=== PATIENT | female | born 1995 | race Two or more races ===

== ENCOUNTER 2017-08-28 19:41 | Emergency (ER) | payer MEDICAID ==
--- NOTE | 2017-08-28 22:34 | EDM.PDOC ---
ED HPI GENERAL MEDICAL PROBLEM - General Chief Complaint: Gastrointestinal Problem Stated Complaint: FLU LIKE SYPTOMS KIDNEYS HURT PREGNET Time Seen by Provider: 08/28/17 20:00 Source of Information: Reports: Patient, RN Notes Reviewed, Significant Other ( Boyfriend) History Limitations: Reports: No Limitations - History of Present Illness INITIAL COMMENTS - FREE TEXT/NARRATIVE: The patient states that she is about 20 weeks 5 days gestation. She presents with a sore throat, rhinorrhea, a dry cough, and right flank pain that began last night, along with nausea, vomiting, and diarrhea that began this morning. She denies having any urinary symptoms. No recent fever. No recent chest pain, shortness breath, or palpitations. She has not taken any [id number] medicines. She came to the ED because she is worried about her . The patient did not receive an influenza vaccine this season. The patient's Line Pilot is Dr. Rdz. - Related Data Allergies Allergy/AdvReac Type Severity Reaction Status Date / Time strawberry Allergy Airway Verified 08/28/17 19:52 Tightness Home Meds: Home Meds Vitamins. 1 tab PO DAILY 08/28/17 [History] Past Medical History - Past Surgical History HEENT Surgical History: Reports: Oral Surgery ([place] teeth extraction) Social & Family History - Tobacco Use Smoking Status *Q: Never Smoker - Alcohol Use Alcohol Use History: Yes Alcohol Use Frequency: Socially - Recreational Drug Use Recreational Drug Use: No - Living Situation & Occupation Living situation: Reports: Single, with Significant Other (Boyfriend) Occupation: Employed ([employer]) ED ROS GENERAL - Review of Systems Review Of Systems: See Below Constitutional: Reports: No Symptoms HEENT: Reports: No Symptoms Respiratory: Reports: No Symptoms Cardiovascular: Reports: No Symptoms Endocrine: Reports: No Symptoms GI/Abdominal: Reports: No Symptoms : Reports: No Symptoms Musculoskeletal: Reports: No Symptoms Skin: Reports: No Symptoms Neurological: Reports: No Symptoms Psychiatric: Reports: No Symptoms Hematologic/Lymphatic: Reports: No Symptoms Immunologic: Reports: No Symptoms ED EXAM, GENERAL - Physical Exam Exam: See Below Exam Limited By: No Limitations General Appearance: Alert, WD/WN, No Apparent Distress Eye Exam: Bilateral Eye: Normal Inspection Ears: Normal External Exam, Normal Canal, Hearing Grossly Normal, Normal TMs Nose: Normal Inspection, Normal Mucosa, No Blood Throat/Mouth: Normal Inspection, Normal Lips, Normal Teeth, Normal Gums, Normal Oropharynx, Normal Voice, No Airway Compromise Head: Atraumatic, Normocephalic Neck: Normal Inspection, Supple, Non-Tender, Full Range of Motion. No: Lymphadenopathy (L), Lymphadenopathy (R) Respiratory/Chest: No Respiratory Distress, Lungs Clear, Normal Breath Sounds, No Accessory Muscle Use Cardiovascular: Normal Peripheral Pulses, Regular Rate, Rhythm, No Gallop, No JVD, No Murmur, No Rub Peripheral Pulses: 4+: Radial (L), Radial (R) GI/Abdominal: Normal Bowel Sounds, Soft, Non-Tender, No Organomegaly, No Distention, No Abnormal Bruit, No Mass, Mass (Gravid uterus, consistent with dates) (Female) Exam: Deferred Rectal (Female) Exam: Deferred Back Exam: Normal Inspection, Full Range of Motion. No: CVA Tenderness (L), CVA Tenderness (R) Extremities: Normal Inspection, Normal Range of Motion, No Pedal Edema, Normal Capillary Refill Neurological: Alert, Oriented, Normal Cognition, No Motor/Sensory Deficits Psychiatric: Normal Affect Skin Exam: Warm, Dry, Intact, Normal Color, No Rash Course - Vital Signs Last Recorded V/S: Last Vital Signs Temp 36.7 C 08/28/17 19:52 Pulse 113 H 08/28/17 19:52 Resp BP 124/73 08/28/17 19:52 Pulse Ox 96 08/28/17 19:52 - Orders/Labs/Meds Orders: Active Orders 24 hr Category Date Time Status Heart Rate [RC] Click to Edit Care 08/28/17 20:13 Active CULTURE STREP A CONFIRMATION [RM] Stat Lab 08/28/17 20:09 Results STREP SCRN A RAPID W CULT CONF [RM] Stat Lab 08/28/17 20:09 Results Labs: Laboratory Tests 08/28/17 08/28/17 08/28/17 Range/Units 20:12 20:12 20:56 WBC 8.76 (3.98-10.04) K/mm3 RBC 4.38 (3.98-5.22) M/mm3 Hgb 13.7 (11.2-15.7) gm/L Hct 38.5 (34.1-44.9) % MCV 87.9 (79.4-94.8) fl MCH 31.3 (25.6-32.2) pg MCHC 35.6 H (32.2-35.5) g/dl RDW Std Deviation 40.7 (36.4-46.3) fL Plt Count 192 (182-369) K/mm3 MPV 10.0 (9.4-12.3) fl Neutrophils % (Manual) 81 H (40-60) % Band Neutrophils % 0 (0-10) % Lymphocytes % (Manual) 12 L (20-40) % Atypical Lymphs % 0 % Monocytes % (Manual) 7 (2-10) % Eosinophils % (Manual) 0 L (0.7-5.8) % Basophils % (Manual) 0 L (0.1-1.2) Platelet Estimate Adequate Plt Morphology Comment Normal RBC Morph Comment Normal Sodium 140 (136-145) mEq/L Potassium 3.8 (3.5-5.1) mEq/L Chloride 105 (98-107) mEq/L Carbon Dioxide 21 (21-32) mEq/L Anion Gap 17.8 H (5-15) BUN 7 (7-18) mg/dL Creatinine 0.6 (0.55-1.02) mg/dL Est Cr Clr Drug Dosing 122.69 mL/min Estimated GFR (MDRD) > 60 (>60) mL/min BUN/Creatinine Ratio 11.7 L (14-18) Glucose 79 (74-106) mg/dL Calcium 9.1 (8.5-10.1) mg/dL Total Bilirubin 0.3 (0.2-1.0) mg/dL AST 43 H (15-37) U/L ALT 53 (14-59) U/L Alkaline Phosphatase 66 (46-116) U/L Total Protein 7.2 (6.4-8.2) g/dl Albumin 3.3 L (3.4-5.0) g/dl Globulin 3.9 gm/dL Albumin/Globulin Ratio 0.9 L (1-2) Urine Color Light yellow (Yellow) Urine Appearance Clear (Clear) Urine pH 6.5 (5.0-8.0) Ur Specific [place] 1.010 (1.005-1.030) Urine Protein Negative (Negative) Urine Glucose (UA) Negative (Negative) Urine Ketones 1+ H (Negative) Urine Occult Blood Negative (Negative) Urine Nitrite Negative (Negative) Urine Bilirubin Negative (Negative) Urine Urobilinogen 0.2 (0.2-1.0) Ur Leukocyte Esterase Negative (Negative) Urine RBC 0-5 (0-5) /hpf Urine WBC 0-5 (0-5) /hpf Ur Epithelial Cells 0-5 (0-5) /hpf Urine Bacteria Occasional (FEW) /hpf Urine Mucus Not seen (FEW) /hpf - Re-Assessments/Exams Free Text/Narrative Re-Assessment/Exam: 08/28/17 22:28 Test results discussed with the patient and her boyfriend. Today's workup is entirely normal. The patient appears to have a viral URI with cough. Since she is and does not have a fever, I am recommending no treatment whatsoever. Departure - Departure Time of Disposition: 22:29 Disposition: Home, Self-Care 01 Condition: Good Clinical Impression: Viral URI with cough, - Discharge Information Instructions: Upper Respiratory Infection, Adult, [id number] Referrals: Natalie Rdz MD [Primary Care Provider] - Forms: ED Department Discharge Additional Instructions: You were seen in the emergency room for a sore throat, runny nose, dry cough, nausea, vomiting, and diarrhea, and right flank pain. Your entire workup was unremarkable. You do not have influenza or a strep throat. There is no sign of an infection. You do not have a urinary tract infection. Your electrolytes are normal, and you are not dehydrated. heart tones were 158, which are normal. Your symptoms are MOST LIKELY due to a viral URI with cough. Since you are , and do not have a fever, we do not recommend that you take any medications to try to treat these symptoms. They will have to run their course. Just make sure that he stay well hydrated. Follow-up with Dr. Rdz as needed. If any other problems, please do not hesitate to return to the ER. - My Orders Last 24 Hours: My Active Orders 08/28/17 20:09 CULTURE STREP A CONFIRMATION [RM] Stat STREP SCRN A RAPID W CULT CONF [RM] Stat 08/28/17 20:13 Heart Rate [RC] Click to Edit - Assessment/Plan Last 24 Hours: My Active Orders 08/28/17 20:09 CULTURE STREP A CONFIRMATION [RM] Stat STREP SCRN A RAPID W CULT CONF [RM] Stat 08/28/17 20:13 Heart Rate [RC] Click to Edit
== END 2017-08-28 22:53 | disposition home or self-care (01) ==
LOC: JD.ED 19:41
DX: O99.512 Diseases of the respiratory system complicating pregnancy, second trimester (principal); J06.9 Acute upper respiratory infection, unspecified; Z91.018 Allergy to other foods; Z3A.20 20 weeks gestation of pregnancy
CPT/HCPCS: 36415; 80053; 81001; 85025; 87081; 87430; 87804; 99283

== ENCOUNTER 2017-12-26 01:21 | Inpatient (IN) | payer MEDICAID ==
[2017-12-26] MEDS ORDERED: Sodium Chloride 0.9% 10 ML Syringe FLUSH PRN (08:05)
[2017-12-26] MEDS ORDERED: Misoprostol 25 MCG (1/4 of 100 MCG) Tab VAG ONE (08:09)
[2017-12-26] MEDS ORDERED: Oxytocin/Lactated Ringers 10 UNIT/1,000 ML BAG IV SCH ×2 (08:15)
--- NOTE | 2017-12-26 09:01 | PCM.LDHP ---
L&D History of Present Illness - General Date of Service: 12/26/17 Admit Problem/Dx: Patient Status Order with Admit Dx/Problem 12/26/17 08:06 Patient Status [ADT] Routine Admission Diagnosis/Problem Admission Diagnosis/Problem Source of Information: Patient History Limitations: Reports: No Limitations - History of Present Illness Introduction:: Patient is a 22 y/o at 37 6/7 wks presents for IOL for preeclampsia. Doing well. No issues with headaches, vision changes, RUQ pain. Getting good FM. Thinks she may be having some contractions. - Related Data Allergies/Adverse Reactions: Allergies Allergy/AdvReac Type Severity Reaction Status Date / Time strawberry Allergy Airway Verified 08/28/17 19:52 Tightness Home Medications: Home Meds Vitamins. 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 hypertension mother and father Respiratory: Reports: Asthma Other Respiratory Family Hisory: father Oncologic: Reports: Renal Other Oncologic Family History: mother - Tobacco Use Smoking Status *Q: Never Smoker - Alcohol Use Alcohol Use History: No - Recreational Drug Use Recreational Drug Use: No - Living Situation & Occupation Living situation: Reports: Single, with Significant Other (Boyfriend) Occupation: Employed ([employer]) H&P Review of Systems - Review of Systems: Review Of Systems: See Below General: Reports: No Symptoms Pulmonary: Reports: No Symptoms Cardiovascular: Reports: No Symptoms Gastrointestinal: Reports: No Symptoms Genitourinary: Reports: No Symptoms Musculoskeletal: Reports: No Symptoms Psychiatric: Reports: No Symptoms L&D Exam - Exam Exam: See Below - Vital Signs Vital Signs: Last Vital Signs Temp 36.4 C 12/26/17 08:05 Pulse 104 H 12/26/17 08:05 Resp 16 12/26/17 08:05 BP 127/87 12/26/17 08:05 Pulse Ox 100 12/26/17 08:05 Weight: 102.058 kg - OB Specific Contraction Intensity: Irritability Movement: Active Heart Tones: Present Heart Tones per Min: 135 Heart Rate (FHR) Variability: Moderate (6-25 bmp) Presentation: Vertex - Ramirez Score Ramirez Score Cervix Position: Posterior Ramirez Score Consistency: Soft Ramirez Score Effacement: 31-50% Ramirez Score Dilation: 1-2 cm Ramirez Score Infant's Station: -2 Ramirez Score Total: 5 - Exam General: Alert, Oriented, Cooperative Lungs: Clear to Auscultation, Normal Respiratory Effort Cardiovascular: Regular Rate, Regular Rhythm GI/Abdominal Exam: Soft, Non-Tender Genitourinary: Normal external exam Extremities: Normal Inspection Skin: Warm, Dry, Intact - Patient Data Lab Results Last 24 hrs: Laboratory Results - last 24 hr 12/26/17 Range/Units 08:30 WBC 10.38 H (3.98-10.04) K/mm3 RBC 4.37 (3.98-5.22) M/mm3 Hgb 12.1 (11.2-15.7) gm/L Hct 35.7 (34.1-44.9) % MCV 81.7 (79.4-94.8) fl MCH 27.7 (25.6-32.2) pg MCHC 33.9 (32.2-35.5) g/dl RDW Std Deviation 38.4 (36.4-46.3) fL Plt Count 295 (182-369) K/mm3 MPV 9.1 L (9.4-12.3) fl Neut % (Auto) 75.2 H (34.0-71.1) % Lymph % (Auto) 17.3 L (19.3-51.7) % [place] % (Auto) 6.1 (4.7-12.5) % Eos % (Auto) 0.9 (0.7-5.8) Baso % (Auto) 0.1 (0.1-1.2) % Neut # (Auto) 7.81 H (1.56-6.13) K/mm3 Lymph # (Auto) 1.80 (1.18-3.74) K/mm3 [place] # (Auto) 0.63 H (0.24-0.36) K/mm3 Eos # (Auto) 0.09 (0.04-0.36) K/mm3 Baso # (Auto) 0.01 (0.01-0.08) K/mm3 Result Diagrams: 12/26/17 08:30 - Problem List (1) 37 weeks gestation of SNOMED Code(s): 44532995 ICD Code: Z3A.37 - 37 WEEKS GESTATION OF Status: Acute Current Visit: Yes (2) Preeclampsia SNOMED Code(s): 650079782 ICD Code: O14.90 - UNSPECIFIED PRE-ECLAMPSIA, UNSPECIFIED TRIMESTER Status : Acute Current Visit: Yes Qualifiers: Trimester: third trimester Qualified Code(s): O14.93 - Unspecified pre- eclampsia, third trimester Problem List Initiated/Reviewed/Updated: Yes Orders Last 24hrs: Active Orders 24 hr Category Date Time Status Patient Status [ADT] Routine ADT 12/26/17 08:06 Active Activity as Tolerated [RC] PFP Care 12/26/17 08:05 Active Communication Order [RC] ASDIRECTED Care 12/26/17 08:05 Active Heart Tones [RC] ASDIRECTED Care 12/26/17 08:05 Active Notify Provider [RC] PFP Care 12/26/17 08:05 Active Notify Provider [RC] PRN Care 12/26/17 08:05 Active Peripheral IV Care [RC] . DIRECTED Care 12/26/17 08:05 Active Vital Signs [RC] PER UNIT ROUTINE Care 12/26/17 08:05 Active Regular Diet [DIET] Diet 12/26/17 Breakfast Active ALANINE AMINOTRANSFERASE,ALT [CHEM] Routine Lab 12/26/17 08:51 Ordered ASPARTATE AMNIOTRANSFERASE,AST [CHEM] Routine Lab 12/26/17 08:51 Ordered CREATININE W/GFR [CHEM] Routine Lab 12/26/17 08:51 Ordered TYPE AND SCREEN [BBK] Routine Lab 12/26/17 08:30 Ordered Lactated Ringers [Ringers, Lactated] 1,000 ml Med 12/26/17 08:15 Active IV ASDIRECTED Oxytocin/Lactated Ringers [Pitocin in LR 10 Units/1,000 Med 12/26/17 08:15 Active ML] 10 unit in 1,000 ml IV .CONTINUOUS Oxytocin/Lactated Ringers [Pitocin in LR 10 Units/1,000 Med 12/26/17 08:15 Active ML] 10 unit in 1,000 ml IV TITRATE Sodium Chloride 0.9% [Saline Flush] Med 12/26/17 08:05 Active 10 ml FLUSH ASDIRECTED PRN Electronic Heart Tones Ext w TOCO [WOMSER] Oth 12/26/17 08:05 Ordered Routine Electronic Heart Tones Internal [WOMSER] Per Unit Oth 12/26/17 08:05 Ordered Routine Peripheral IV Insertion Adult [OM.PC] Routine Oth 12/26/17 08:05 Ordered Saline Lock Insert [OM.PC] Routine Oth 12/26/17 08:07 Ordered Resuscitation Status Routine Resus Stat 12/26/17 08:05 Ordered Medication Orders Lactated Ringer's (Ringers, Lactated) 1,000 mls @ 100 mls/hr IV ASDIRECTED BRYAN Oxytocin/Lactated Ringer's (Pitocin In Lr 10 Units/1,000 Ml) 10 unit in 1,000 mls @ 12 mls/hr IV TITRATE BRYAN; 2 MUNITS/MIN PRN Reason: Protocol Oxytocin/Lactated Ringer's (Pitocin In Lr 10 Units/1,000 Ml) 10 unit in 1,000 mls @ 500 mls/hr IV .CONTINUOUS BRYAN Sodium Chloride (Saline Flush) 10 ml FLUSH ASDIRECTED PRN PRN Reason: Keep Vein Open Assessment/Plan Comment:: 22 y/o at 37 6/7 wks presents for IOL for preeclampsia * CBC, AST, ALT, Creatinine, T&S * Cytotec for IOL, pitocin/AROM when able * GBS negative, no need for antibiotics * Monitor BP's closely. As long as mild elevation and normal labs will defer magnesium * Pain management per patient preference * Anticipate
[2017-12-26] MEDS ORDERED: Ondansetron 4 MG/2 ML SDV IVPUSH PRN (10:50)
[2017-12-26] MEDS ORDERED: fentaNYL 100 MCG/2 ML SDV EPIDUR PRN (10:50)
[2017-12-26] MEDS ORDERED: ePHEDrine 50 MG/ML SDV IVPUSH PRN (10:50)
--- NOTE | 2017-12-26 10:52 | PCM.PREANE ---
Preanesthetic Assessment - Anesthesia/Transfusion/Family Hx Anesthesia History: Prior Anesthesia Without Reaction Family History of Anesthesia Reaction: No Transfusion History: No Prior Transfusion(s) Intubation History: Unknown - Review of Systems General: No Symptoms Pulmonary: No Symptoms Cardiovascular: No Symptoms (pre-eclampsia) Gastrointestinal: No Symptoms (GERD), Constipation, Diarrhea, Nausea Neurological: No Symptoms Other: Reports: None - Physical Assessment NPO Status Date: 12/26/17 NPO Status Time: 09:00 Pulse: 104 O2 Sat by Pulse Oximetry: 100 Respiratory Rate: 16 Blood Pressure: 127/87 Temperature: 36.4 C Vital Signs: Last Vital Signs Temp 36.4 C 12/26/17 08:05 Pulse 104 H 12/26/17 08:05 Resp 16 12/26/17 08:05 BP 127/87 12/26/17 08:05 Pulse Ox 100 12/26/17 08:05 Height: 1.63 m Weight: 102.058 kg ASA Class: 2 Mental Status: Alert & Oriented x3 Airway Class: Mallampati = 2 Dentition: Reports: Normal Dentition, Caries Thyro-Mental Finger Breadths: 3 Mouth Opening Finger Breadths: 3 ROM/Head Extension: Full Lungs: Clear to Auscultation, Normal Respiratory Effort Cardiovascular: Regular Rate, Regular Rhythm, No Murmurs - Lab Values: Laboratory Last Values WBC 10.38 K/mm3 (3.98-10.04) H 12/26/17 08:30 RBC 4.37 M/mm3 (3.98-5.22) 12/26/17 08:30 Hgb 12.1 gm/L (11.2-15.7) 12/26/17 08:30 Hct 35.7 % (34.1-44.9) 12/26/17 08:30 MCV 81.7 fl (79.4-94.8) 12/26/17 08:30 MCH 27.7 pg (25.6-32.2) 12/26/17 08:30 MCHC 33.9 g/dl (32.2-35.5) 12/26/17 08:30 RDW Std Deviation 38.4 fL (36.4-46.3) 12/26/17 08:30 Plt Count 295 K/mm3 (182-369) 12/26/17 08:30 MPV 9.1 fl (9.4-12.3) L 12/26/17 08:30 Neut % (Auto) 75.2 % (34.0-71.1) H 12/26/17 08:30 Lymph % (Auto) 17.3 % (19.3-51.7) L 12/26/17 08:30 [place] % (Auto) 6.1 % (4.7-12.5) 12/26/17 08:30 Eos % (Auto) 0.9 (0.7-5.8) 12/26/17 08:30 Baso % (Auto) 0.1 % (0.1-1.2) 12/26/17 08:30 Neut # (Auto) 7.81 K/mm3 (1.56-6.13) H 12/26/17 08:30 Lymph # (Auto) 1.80 K/mm3 (1.18-3.74) 12/26/17 08:30 [place] # (Auto) 0.63 K/mm3 (0.24-0.36) H 12/26/17 08:30 Eos # (Auto) 0.09 K/mm3 (0.04-0.36) 12/26/17 08:30 Baso # (Auto) 0.01 K/mm3 (0.01-0.08) 12/26/17 08:30 Creatinine 0.7 mg/dL (0.55-1.02) 12/26/17 09:40 Est Cr Clr Drug Dosing 108.86 mL/min 12/26/17 09:40 Estimated GFR (MDRD) > 60 mL/min (>60) 12/26/17 09:40 AST 32 U/L (15-37) 12/26/17 09:40 ALT 52 U/L (14-59) 12/26/17 09:40 Blood Type AB POSITIVE 12/26/17 08:30 Gel Antibody Screen Negative 12/26/17 08:30 Above labs reviewed and noted and within acceptable ranges to proceed with epidural. 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 1 tab PO DAILY 08/28/17 [History] - CURRENT (IN HOUSE) MEDS Current Meds: Current Medications Lactated Ringer's (Ringers, Lactated) 1,000 mls @ 100 mls/hr IV ASDIRECTED BRYAN Oxytocin/Lactated Ringer's (Pitocin In Lr 10 Units/1,000 Ml) 10 unit in 1,000 mls @ 12 mls/hr IV TITRATE BRYAN; 2 MUNITS/MIN PRN Reason: Protocol Oxytocin/Lactated Ringer's (Pitocin In Lr 10 Units/1,000 Ml) 10 unit in 1,000 mls @ 500 mls/hr IV .CONTINUOUS BRYAN Sodium Chloride (Saline Flush) 10 ml FLUSH ASDIRECTED PRN PRN Reason: Keep Vein Open Discontinued Medications Misoprostol (Cytotec) 25 mcg VAG ONETIME ONE Stop: 12/26/17 08:10 Last Admin: 12/26/17 08:33 Dose: 25 mcg
[2017-12-26] MEDS ORDERED: Bupivacaine/fentaNYL/NS 100 ML Bag EPIDUR SCH (11:00)
[2017-12-26] MEDS: Lactated Ringers 1,000 ML IV SCH ×4 (12:00→23:55)
--- NOTE | 2017-12-26 20:11 | PCM.PNLD ---
Labor Progress Note - VS & Meds Vital Signs: Last Vital Signs Temp 36.4 C 12/26/17 13:47 Pulse 104 H 12/26/17 13:47 Resp 16 12/26/17 13:47 BP 127/87 12/26/17 13:47 Pulse Ox 100 12/26/17 13:47 Active Medications: Current Medications Ephedrine Sulfate (Ephedrine Sulfate) 5 mg IVPUSH ASDIRECTED PRN PRN Reason: Hypotension Fentanyl (Sublimaze) 100 mcg EPIDUR Q3H PRN PRN Reason: Pain Last Admin: 12/26/17 19:00 Dose: 100 mcg Fentanyl/Bupivacaine HCl (Fentanyl/Bupivacaine/Ns 2 Mcg-0.125% 100 Ml) 100 ml EPIDUR ASDIRECTED BRYAN Last Admin: 12/26/17 19:00 Dose: 100 ml Lactated Ringer's (Ringers, Lactated) 1,000 mls @ 100 mls/hr IV ASDIRECTED BRYAN Last Admin: 12/26/17 18:38 Dose: 100 mls/hr Oxytocin/Lactated Ringer's (Pitocin In Lr 10 Units/1,000 Ml) 10 unit in 1,000 mls @ 12 mls/hr IV TITRATE BRYAN; 2 MUNITS/MIN PRN Reason: Protocol Oxytocin/Lactated Ringer's (Pitocin In Lr 10 Units/1,000 Ml) 10 unit in 1,000 mls @ 500 mls/hr IV .CONTINUOUS BRYAN Ondansetron HCl (Zofran) 4 mg IVPUSH ONETIME PRN PRN Reason: Nausea/Vomiting Sodium Chloride (Saline Flush) 10 ml FLUSH ASDIRECTED PRN PRN Reason: Keep Vein Open Discontinued Medications Misoprostol (Cytotec) 25 mcg VAG ONETIME ONE Stop: 12/26/17 08:10 Last Admin: 12/26/17 08:33 Dose: 25 mcg - Uterine Contractions Uterine Monitoring Mode: External [place] Contraction Intensity: Moderate - Monitoring Monitor Mode: External Ultrasound Heart Rate (FHR) Baseline: 135 Heart Rate (FHR) Variability: Moderate (6-25 bmp) Accelerations: Present, 15x15 Decelerations: None Strip Review: Category I - Vaginal Exam Dilation (cm): 1 Effacement (Percent): 40 Station: -2 Cervical Position: Posterior - Labor Progress (Free Text) Labor Progress: Patient doing well with first dose of cytotec. Merlin frequently. Will not place another. Garcia bulb placed with aid of speculum and ring forceps. Received call about 30 minutes after placement. Garcia bulb did break and removed by nursing/intact. Defer further placement currently. Will reassess this PM
--- NOTE | 2017-12-26 20:13 | PCM.PNLD ---
Labor Progress Note - VS & Meds Vital Signs: Last Vital Signs Temp 36.4 C 12/26/17 13:47 Pulse 104 H 12/26/17 13:47 Resp 16 12/26/17 13:47 BP 127/87 12/26/17 13:47 Pulse Ox 100 12/26/17 13:47 Active Medications: Current Medications Ephedrine Sulfate (Ephedrine Sulfate) 5 mg IVPUSH ASDIRECTED PRN PRN Reason: Hypotension Fentanyl (Sublimaze) 100 mcg EPIDUR Q3H PRN PRN Reason: Pain Last Admin: 12/26/17 19:00 Dose: 100 mcg Fentanyl/Bupivacaine HCl (Fentanyl/Bupivacaine/Ns 2 Mcg-0.125% 100 Ml) 100 ml EPIDUR ASDIRECTED BRYAN Last Admin: 12/26/17 19:00 Dose: 100 ml Lactated Ringer's (Ringers, Lactated) 1,000 mls @ 100 mls/hr IV ASDIRECTED BRYAN Last Admin: 12/26/17 18:38 Dose: 100 mls/hr Oxytocin/Lactated Ringer's (Pitocin In Lr 10 Units/1,000 Ml) 10 unit in 1,000 mls @ 12 mls/hr IV TITRATE BRYAN; 2 MUNITS/MIN PRN Reason: Protocol Oxytocin/Lactated Ringer's (Pitocin In Lr 10 Units/1,000 Ml) 10 unit in 1,000 mls @ 500 mls/hr IV .CONTINUOUS BRYAN Ondansetron HCl (Zofran) 4 mg IVPUSH ONETIME PRN PRN Reason: Nausea/Vomiting Sodium Chloride (Saline Flush) 10 ml FLUSH ASDIRECTED PRN PRN Reason: Keep Vein Open Discontinued Medications Misoprostol (Cytotec) 25 mcg VAG ONETIME ONE Stop: 12/26/17 08:10 Last Admin: 12/26/17 08:33 Dose: 25 mcg - Uterine Contractions Uterine Monitoring Mode: External [place] Contraction Intensity: Strong - Monitoring Monitor Mode: External Ultrasound Heart Rate (FHR) Baseline: 135 Heart Rate (FHR) Variability: Moderate (6-25 bmp) Accelerations: Present, 15x15 Decelerations: None Strip Review: Category I - Vaginal Exam Dilation (cm): 1 Effacement (Percent): 70 Station: -1 Cervical Position: Midposition - Labor Progress (Free Text) Labor Progress: Patient very uncomfortable. Merlin on own without need for further augmentation. BP's remain mild range. Continue present management. Epidural per patient request
--- NOTE | 2017-12-26 20:14 | PCM.PNLD ---
Labor Progress Note - VS & Meds Vital Signs: Last Vital Signs Temp 36.4 C 12/26/17 13:47 Pulse 104 H 12/26/17 13:47 Resp 16 12/26/17 13:47 BP 127/87 12/26/17 13:47 Pulse Ox 100 12/26/17 13:47 Active Medications: Current Medications Ephedrine Sulfate (Ephedrine Sulfate) 5 mg IVPUSH ASDIRECTED PRN PRN Reason: Hypotension Fentanyl (Sublimaze) 100 mcg EPIDUR Q3H PRN PRN Reason: Pain Last Admin: 12/26/17 19:00 Dose: 100 mcg Fentanyl/Bupivacaine HCl (Fentanyl/Bupivacaine/Ns 2 Mcg-0.125% 100 Ml) 100 ml EPIDUR ASDIRECTED BRYAN Last Admin: 12/26/17 19:00 Dose: 100 ml Lactated Ringer's (Ringers, Lactated) 1,000 mls @ 100 mls/hr IV ASDIRECTED BRYAN Last Admin: 12/26/17 18:38 Dose: 100 mls/hr Oxytocin/Lactated Ringer's (Pitocin In Lr 10 Units/1,000 Ml) 10 unit in 1,000 mls @ 12 mls/hr IV TITRATE BRYAN; 2 MUNITS/MIN PRN Reason: Protocol Oxytocin/Lactated Ringer's (Pitocin In Lr 10 Units/1,000 Ml) 10 unit in 1,000 mls @ 500 mls/hr IV .CONTINUOUS BRYAN Ondansetron HCl (Zofran) 4 mg IVPUSH ONETIME PRN PRN Reason: Nausea/Vomiting Sodium Chloride (Saline Flush) 10 ml FLUSH ASDIRECTED PRN PRN Reason: Keep Vein Open Discontinued Medications Misoprostol (Cytotec) 25 mcg VAG ONETIME ONE Stop: 12/26/17 08:10 Last Admin: 12/26/17 08:33 Dose: 25 mcg - Uterine Contractions Uterine Monitoring Mode: External [place] Contraction Intensity: Strong - Monitoring Monitor Mode: External Ultrasound Heart Rate (FHR) Baseline: 135 Heart Rate (FHR) Variability: Moderate (6-25 bmp) Accelerations: Present, 15x15 Decelerations: Late (rare, after epidural) Strip Review: Category II - Vaginal Exam Dilation (cm): 2 Effacement (Percent): 80 Station: -1 Cervical Position: Midposition - Labor Progress (Free Text) Labor Progress: Patient comfortable with epidural. With SVE there is SROM of scant amount of clear fluid. Continue present management
[2017-12-26] MEDS ORDERED: Bupivacaine 0.25% 10 ML SDV ONE (22:22)
--- NOTE | 2017-12-26 23:48 | PCM.PNLD ---
Labor Progress Note - VS & Meds Vital Signs: Last Vital Signs Temp 36.4 C 12/26/17 13:47 Pulse 104 H 12/26/17 13:47 Resp 16 12/26/17 13:47 BP 127/87 12/26/17 13:47 Pulse Ox 100 12/26/17 13:47 Active Medications: Current Medications Ephedrine Sulfate (Ephedrine Sulfate) 5 mg IVPUSH ASDIRECTED PRN PRN Reason: Hypotension Fentanyl (Sublimaze) 100 mcg EPIDUR Q3H PRN PRN Reason: Pain Last Admin: 12/26/17 19:00 Dose: 100 mcg Fentanyl/Bupivacaine HCl (Fentanyl/Bupivacaine/Ns 2 Mcg-0.125% 100 Ml) 100 ml EPIDUR ASDIRECTED BRYAN Last Admin: 12/26/17 19:00 Dose: 100 ml Lactated Ringer's (Ringers, Lactated) 1,000 mls @ 100 mls/hr IV ASDIRECTED BRYAN Last Admin: 12/26/17 20:15 Dose: 100 mls/hr Oxytocin/Lactated Ringer's (Pitocin In Lr 10 Units/1,000 Ml) 10 unit in 1,000 mls @ 12 mls/hr IV TITRATE BRYAN; 2 MUNITS/MIN PRN Reason: Protocol Oxytocin/Lactated Ringer's (Pitocin In Lr 10 Units/1,000 Ml) 10 unit in 1,000 mls @ 500 mls/hr IV .CONTINUOUS BRYAN Ondansetron HCl (Zofran) 4 mg IVPUSH ONETIME PRN PRN Reason: Nausea/Vomiting Sodium Chloride (Saline Flush) 10 ml FLUSH ASDIRECTED PRN PRN Reason: Keep Vein Open Discontinued Medications Misoprostol (Cytotec) 25 mcg VAG ONETIME ONE Stop: 12/26/17 08:10 Last Admin: 12/26/17 08:33 Dose: 25 mcg - Uterine Contractions Uterine Monitoring Mode: External [place] Contraction Intensity: Strong - Monitoring Monitor Mode: External Ultrasound Heart Rate (FHR) Baseline: 140 Heart Rate (FHR) Variability: Moderate (6-25 bmp) (Some periods of minimal ) Accelerations: Present, 15x15 Decelerations: Early, Late, Intermittent (<50% x 20 min) Strip Review: Category II - Vaginal Exam Dilation (cm): 5 Effacement (Percent): 100 Station: 1 Cervical Position: Midposition - Labor Progress (Free Text) Labor Progress: Called by nursing at 2315 due to concerns with difficulty reading tracing. Questions of lates vs early. Patient does have few isolated late decelerations , but then what are these large/flat bottom decelerations that time with contractions. Timing is of early decelerations, but appearance not classic. IUPC placed. Patient has made great cervical change. Will continue to monitor closely. No medications required. Has only needed one dose of cytotec at the start of induction.
--- NOTE | 2017-12-27 02:43 | PCM.DEL ---
L & D Note - General Info Date of Service: 12/27/17 - Delivery Note Cervical Ripening Method: Misoprostil Delivery Outcome: Livebirth Delivery Method: Spontaneous Vaginal Delivery-Single Delivery Mode: Spontaneous Presentation: Right Occiput Anterior (PARESH) Nuchal Cord: None Anesthesia Type: Epidural Amniotic Fluid Description: Clear Episiotomy Type: None Laceration: 1st Degree, Labial (right sided ) Suture type: Vicryl Suture size: 3-0 Placenta: Intact, Spontaneous Cord: 3 Vessels Estimated Blood Loss: 250 [place]: Bulb Syringe, Stimulated, Warmed, [place] Used Delivery Comments (Free Text/Narrative):: Patient found to be complete and began pushing. With maternal pushing effort head delivered from an PARESH presentation. No nuchal cord present. With gentle downward traction the shoulders and body delivered. Infant placed on maternal abdomen. Cord clamped and cut. Cord blood obtained. Placenta allowed time to separate and expelled intact. Inspection of the perineum showed a right labia tear superiorly which was repaired with several interrupted sutures of 3-0 vicryl. There was also a 1st degree perineal laceration which was repaired with a running 3-0 vicryl in the typical fashion - Patient Data Vitals - Most Recent: Last Vital Signs Temp 36.4 C 12/26/17 13:47 Pulse 104 H 12/26/17 13:47 Resp 16 12/26/17 13:47 BP 127/87 12/26/17 13:47 Pulse Ox 100 12/26/17 13:47 Weight - Most Recent: 102.058 kg I&O - Last 24 Hours: Intake & Output 12/26/17 12/26/17 12/27/17 14:59 22:59 06:59 Intake Total 0 Balance 0 Lab Results Last 24 Hours: Laboratory Results - last 24 hr 12/26/17 12/26/17 12/26/17 Range/Units 08:30 08:30 09:40 WBC 10.38 H (3.98-10.04) K/mm3 RBC 4.37 (3.98-5.22) M/mm3 Hgb 12.1 (11.2-15.7) gm/L Hct 35.7 (34.1-44.9) % MCV 81.7 (79.4-94.8) fl MCH 27.7 (25.6-32.2) pg MCHC 33.9 (32.2-35.5) g/dl RDW Std Deviation 38.4 (36.4-46.3) fL Plt Count 295 (182-369) K/mm3 MPV 9.1 L (9.4-12.3) fl Neut % (Auto) 75.2 H (34.0-71.1) % Lymph % (Auto) 17.3 L (19.3-51.7) % [place] % (Auto) 6.1 (4.7-12.5) % Eos % (Auto) 0.9 (0.7-5.8) Baso % (Auto) 0.1 (0.1-1.2) % Neut # (Auto) 7.81 H (1.56-6.13) K/mm3 Lymph # (Auto) 1.80 (1.18-3.74) K/mm3 [place] # (Auto) 0.63 H (0.24-0.36) K/mm3 Eos # (Auto) 0.09 (0.04-0.36) K/mm3 Baso # (Auto) 0.01 (0.01-0.08) K/mm3 Creatinine 0.7 (0.55-1.02) mg/dL Est Cr Clr Drug Dosing 108.86 mL/min Estimated GFR (MDRD) > 60 (>60) mL/min AST 32 (15-37) U/L ALT 52 (14-59) U/L Blood Type AB POSITIVE Gel Antibody Screen Negative Med Orders - Current: Current Medications Ephedrine Sulfate (Ephedrine Sulfate) 5 mg IVPUSH ASDIRECTED PRN PRN Reason: Hypotension Fentanyl (Sublimaze) 100 mcg EPIDUR Q3H PRN PRN Reason: Pain Last Admin: 12/26/17 19:00 Dose: 100 mcg Fentanyl/Bupivacaine HCl (Fentanyl/Bupivacaine/Ns 2 Mcg-0.125% 100 Ml) 100 ml EPIDUR ASDIRECTED BRYAN Last Admin: 12/26/17 19:00 Dose: 100 ml Lactated Ringer's (Ringers, Lactated) 1,000 mls @ 100 mls/hr IV ASDIRECTED BRYAN Last Admin: 12/26/17 23:55 Dose: 100 mls/hr Oxytocin/Lactated Ringer's (Pitocin In Lr 10 Units/1,000 Ml) 10 unit in 1,000 mls @ 12 mls/hr IV TITRATE BRYAN; 2 MUNITS/MIN PRN Reason: Protocol Oxytocin/Lactated Ringer's (Pitocin In Lr 10 Units/1,000 Ml) 10 unit in 1,000 mls @ 500 mls/hr IV .CONTINUOUS BRYAN Ondansetron HCl (Zofran) 4 mg IVPUSH ONETIME PRN PRN Reason: Nausea/Vomiting Sodium Chloride (Saline Flush) 10 ml FLUSH ASDIRECTED PRN PRN Reason: Keep Vein Open Discontinued Medications Misoprostol (Cytotec) 25 mcg VAG ONETIME ONE Stop: 12/26/17 08:10 Last Admin: 12/26/17 08:33 Dose: 25 mcg - Problem List & Annotations (1) 37 weeks gestation of SNOMED Code(s): 02256782 Code(s): Z3A.37 - 37 WEEKS GESTATION OF Status: Acute Current Visit: Yes (2) Preeclampsia SNOMED Code(s): 441898846 Code(s): O14.90 - UNSPECIFIED PRE-ECLAMPSIA, UNSPECIFIED TRIMESTER Status: Acute Current Visit: Yes Qualifiers: Trimester: third trimester Qualified Code(s): O14.93 - Unspecified pre- eclampsia, third trimester (3) Vaginal delivery SNOMED Code(s): 626813359 Code(s): O80 - ENCOUNTER FOR FULL-TERM UNCOMPLICATED DELIVERY Status: Acute Current Visit: Yes - Problem List Review Problem List Initiated/Reviewed/Updated: Yes - My Orders Last 24 Hours: My Active Orders 12/26/17 08:05 Activity as Tolerated [RC] PFP Communication Order [RC] ASDIRECTED Heart Tones [RC] ASDIRECTED Notify Provider [RC] PFP Notify Provider [RC] PRN Peripheral IV Care [RC] . DIRECTED Vital Signs [RC] PER UNIT ROUTINE Sodium Chloride 0.9% [Saline Flush] 10 ml FLUSH ASDIRECTED PRN Electronic Heart Tones Ext w TOCO [WOMSER] Routine Electronic Heart Tones Internal [WOMSER] Per Unit Routine Peripheral IV Insertion Adult [OM.PC] Routine Resuscitation Status Routine 12/26/17 08:06 Patient Status [ADT] Routine 12/26/17 08:07 Saline Lock Insert [OM.PC] Routine 12/26/17 08:15 Lactated Ringers [Ringers, Lactated] 1,000 ml IV ASDIRECTED Oxytocin/Lactated Ringers [Pitocin in LR 10 Units/1,000 ML] 10 unit in 1,000 ml IV .CONTINUOUS Oxytocin/Lactated Ringers [Pitocin in LR 10 Units/1,000 ML] 10 unit in 1,000 ml IV TITRATE 12/26/17 08:30 PATIENT RETYPE [BBK] Routine TYPE AND SCREEN [BBK] Routine 12/26/17 Breakfast Regular Diet [DIET] - Assessment Assessment:: 22 y/o G2 now P1011 PPD#0 from at 38 0/7 wks after IOL for preeclampsia - Plan Plan:: * Routine cares * Encourage breast feeding * Monitor BP's closely. * Discharge home in 1-2 days
[2017-12-27] MEDS ORDERED: Acetaminophen 325 MG Tab PO PRN (02:53)
[2017-12-27] MEDS ORDERED: Docusate Sodium 100 MG Cap PO PRN (02:53)
[2017-12-27] MEDS ORDERED: Benzocaine/Menthol 20%-0.5% Spray 56 GM Canister TOP PRN (02:53)
[2017-12-27] MEDS ORDERED: Witch Hazel Medicated Pads 100/Jar TOP PRN (02:53)
[2017-12-27] MEDS ORDERED: Lanolin 100% Cream 7 GM Tube TOP PRN (02:53)
[2017-12-27] MEDS: Ibuprofen 600 MG Tab PO PRN ×3 (03:52→18:30)
--- NOTE | 2017-12-27 07:53 | PCM48HPAN ---
Post Anesthesia Note - EVALUATION WITHIN 48HRS OF ANESTHETIC Vital Signs in Normal Range: Yes Patient Participated in Evaluation: Yes Respiratory Function Stable: Yes Airway Patent: Yes Cardiovascular Function Stable: Yes Hydration Status Stable: Yes Pain Control Satisfactory: Yes Nausea and Vomiting Control Satisfactory: Yes Mental Status Recovered: Yes Pulse Rate: 104 Resp Rate: 16 Temperature: 36.4 C Blood Pressure: 127/87 - COMMENTS/OBSERVATIONS Free Text/Narrative:: When asked patient if she had any concerns she responded,"No everything is fine. Oh ya I did have a headache." At the present time she says she has no headache "I just feel hungover." Encouraged to drink lots of fluids.
--- NOTE | 2017-12-28 06:57 | PCM.DCSUM1 ---
Discharge Summary - Discharge Data Discharge Date: 12/29/17 Discharge Disposition: Home, Self-Care 01 Condition: Good - Discharge Diagnosis/Problem(s) (1) 37 weeks gestation of SNOMED Code(s): 26615551 ICD Code: Z3A.37 - 37 WEEKS GESTATION OF Status: Acute (2) Preeclampsia SNOMED Code(s): 196773363 ICD Code: O14.90 - UNSPECIFIED PRE-ECLAMPSIA, UNSPECIFIED TRIMESTER Status : Acute Qualifiers: Trimester: third trimester Qualified Code(s): O14.93 - Unspecified pre- eclampsia, third trimester (3) Vaginal delivery SNOMED Code(s): 082364148 ICD Code: O80 - ENCOUNTER FOR FULL-TERM UNCOMPLICATED DELIVERY Status: Acute - Patient Summary/Data Complications: None Consults: None Recommended Follow-up Testing/Procedures: Follow up in 1-2 weeks for BP check and in 5-6 weeks for check Hospital Course: Patient is a 22 y/o at 37 6/7 wks who presented for IOL for preeclampsia. This was done with cytote. She progressed well to complete dilation and underwent an uncomplicated . See delivery note. she did well and was discharged home on PPD2 - Patient Instructions Diet: Regular Diet as Tolerated Activity: As Tolerated Activity, Other: Pelvic Rest for 6 weeks Driving: May Drive Today Showering/Bathing: May Shower Showering/Bathing, Other: May Bathe Notify Provider of: Fever, Increased Pain, Swelling and Redness, Drainage, Nausea and/or Vomiting - Discharge Plan Home Medications: Home Meds Vitamins. 1 tab PO DAILY 08/28/17 [History] Docusate Sodium [Colace] 100 mg PO BID PRN cap 12/28/17 [Rx] Ibuprofen [IJD: Ibuprofen] 600 mg PO Q6H PRN tablet 12/28/17 [Rx] Patient Handouts: Home Care Instructions for Mom Referrals: Natalie Rdz MD [Primary Care Provider] - (1-2 weeks from delivery for BP check 6 weeks from delivery for check ) - Discharge Summary/Plan Comment DC Time >30 min.: No - Patient Data Vitals - Most Recent: Last Vital Signs Temp 36.8 C 12/27/17 19:46 Pulse 104 H 12/27/17 19:46 Resp 18 12/27/17 19:46 BP 131/83 12/27/17 19:46 Pulse Ox 94 L 12/27/17 19:46 Weight - Most Recent: 102.058 kg I&O - Last 24 hours: Intake & Output 12/27/17 12/27/1718 14:59 22:59 06:59 Intake Total 0 0 Balance 0 0 Med Orders - Current: Current Medications Acetaminophen (Tylenol) 650 mg PO Q4H PRN PRN Reason: mild pain or fever Benzocaine/Menthol (Dermoplast Pain Relief [place]) 0 gm TOP ASDIRECTED PRN PRN Reason: Perineal Comfort Measure Last Admin: 12/27/17 03:51 Dose: 1 applic Docusate Sodium (Colace) 100 mg PO BID PRN PRN Reason: Constipation Emollient Ointment (Lansinoh Hpa) 0 gm TOP ASDIRECTED PRN PRN Reason: Sore Nipples Ibuprofen (Motrin) 600 mg PO Q6H PRN PRN Reason: Mild pain or fever Last Admin: 12/27/17 18:30 Dose: 600 mg Witch [place]iana (Tucks) 1 pad TOP ASDIRECTED PRN PRN Reason: Hemorrhoid pain Last Admin: 12/27/17 03:52 Dose: 1 tub Discontinued Medications Ephedrine Sulfate (Ephedrine Sulfate) 5 mg IVPUSH ASDIRECTED PRN PRN Reason: Hypotension Fentanyl (Sublimaze) 100 mcg EPIDUR Q3H PRN PRN Reason: Pain Last Admin: 12/26/17 19:00 Dose: 100 mcg Fentanyl/Bupivacaine HCl (Fentanyl/Bupivacaine/Ns 2 Mcg-0.125% 100 Ml) 100 ml EPIDUR ASDIRECTED BRYAN Last Admin: 12/26/17 19:00 Dose: 100 ml Lactated Ringer's (Ringers, Lactated) 1,000 mls @ 100 mls/hr IV ASDIRECTED BRYAN Last Admin: 12/26/17 23:55 Dose: 100 mls/hr Oxytocin/Lactated Ringer's (Pitocin In Lr 10 Units/1,000 Ml) 10 unit in 1,000 mls @ 12 mls/hr IV TITRATE BRYAN; 2 MUNITS/MIN PRN Reason: Protocol Oxytocin/Lactated Ringer's (Pitocin In Lr 10 Units/1,000 Ml) 10 unit in 1,000 mls @ 500 mls/hr IV .CONTINUOUS BRYAN Last Admin: 12/27/17 03:50 Dose: 500 mls/hr Misoprostol (Cytotec) 25 mcg VAG ONETIME ONE Stop: 12/26/17 08:10 Last Admin: 12/26/17 08:33 Dose: 25 mcg Ondansetron HCl (Zofran) 4 mg IVPUSH ONETIME PRN PRN Reason: Nausea/Vomiting Sodium Chloride (Saline Flush) 10 ml FLUSH ASDIRECTED PRN PRN Reason: Keep Vein Open *Q Meaningful Use (DIS) - VTE *Q VTE Criteria *Q: - Stroke *Q Stroke Criteria *Q: - AMI *Q AMI Criteria *Q:
--- NOTE | 2017-12-28 06:57 | PCM.PNPP ---
- General Info Date of Service: 12/28/17 Functional Status: Reports: Pain Controlled, Tolerating Diet, Ambulating, Urinating - Review of Systems General: Reports: No Symptoms Pulmonary: Reports: No Symptoms Cardiovascular: Reports: No Symptoms Gastrointestinal: Reports: No Symptoms Genitourinary: Reports: No Symptoms Musculoskeletal: Reports: No Symptoms - Patient Data Vital Signs - Most Recent: Last Vital Signs Temp 36.8 C 12/27/17 19:46 Pulse 104 H 12/27/17 19:46 Resp 18 12/27/17 19:46 BP 131/83 12/27/17 19:46 Pulse Ox 94 L 12/27/17 19:46 Weight - Most Recent: 102.058 kg I&O - Last 24 Hours: Intake & Output 12/27/17 12/27/17 12/28/17 14:59 22:59 06:59 Intake Total 0 0 Balance 0 0 Med Orders - Current: Current Medications Acetaminophen (Tylenol) 650 mg PO Q4H PRN PRN Reason: mild pain or fever Benzocaine/Menthol (Dermoplast Pain Relief [place]) 0 gm TOP ASDIRECTED PRN PRN Reason: Perineal Comfort Measure Last Admin: 12/27/17 03:51 Dose: 1 applic Docusate Sodium (Colace) 100 mg PO BID PRN PRN Reason: Constipation Emollient Ointment (Lansinoh Hpa) 0 gm TOP ASDIRECTED PRN PRN Reason: Sore Nipples Ibuprofen (Motrin) 600 mg PO Q6H PRN PRN Reason: Mild pain or fever Last Admin: 12/27/17 18:30 Dose: 600 mg Witch [place] (Tucks) 1 pad TOP ASDIRECTED PRN PRN Reason: Hemorrhoid pain Last Admin: 12/27/17 03:52 Dose: 1 tub Discontinued Medications Ephedrine Sulfate (Ephedrine Sulfate) 5 mg IVPUSH ASDIRECTED PRN PRN Reason: Hypotension Fentanyl (Sublimaze) 100 mcg EPIDUR Q3H PRN PRN Reason: Pain Last Admin: 12/26/17 19:00 Dose: 100 mcg Fentanyl/Bupivacaine HCl (Fentanyl/Bupivacaine/Ns 2 Mcg-0.125% 100 Ml) 100 ml EPIDUR ASDIRECTED BRYAN Last Admin: 12/26/17 19:00 Dose: 100 ml Lactated Ringer's (Ringers, Lactated) 1,000 mls @ 100 mls/hr IV ASDIRECTED BRYAN Last Admin: 12/26/17 23:55 Dose: 100 mls/hr Oxytocin/Lactated Ringer's (Pitocin In Lr 10 Units/1,000 Ml) 10 unit in 1,000 mls @ 12 mls/hr IV TITRATE BRYAN; 2 MUNITS/MIN PRN Reason: Protocol Oxytocin/Lactated Ringer's (Pitocin In Lr 10 Units/1,000 Ml) 10 unit in 1,000 mls @ 500 mls/hr IV .CONTINUOUS BRYAN Last Admin: 12/27/17 03:50 Dose: 500 mls/hr Misoprostol (Cytotec) 25 mcg VAG ONETIME ONE Stop: 12/26/17 08:10 Last Admin: 12/26/17 08:33 Dose: 25 mcg Ondansetron HCl (Zofran) 4 mg IVPUSH ONETIME PRN PRN Reason: Nausea/Vomiting Sodium Chloride (Saline Flush) 10 ml FLUSH ASDIRECTED PRN PRN Reason: Keep Vein Open - Interaction Infant Disposition, : [place] in Room with Family Infant Interaction: Holding Infant Infant Feeding: Attempted ; Nursed Fair/Poor - Recovery Exam Fundal Tone: Firm Fundal Level: At Umbilicus Fundal Placement: Midline Lochia Amount: Moderate Lochia Color: Rubra/Red Perineum Description: Intact, Minimal Bruising/Swelling Bladder Status: Voiding Urinary Elimination: Voided - Exam General: Alert, Oriented, Cooperative GI/Abdominal Exam: Soft, Non-Tender Extremities: Normal Inspection Skin: Warm, Dry, Intact - Problem List & Annotations (1) 37 weeks gestation of SNOMED Code(s): 65647142 Code(s): Z3A.37 - 37 WEEKS GESTATION OF Status: Acute Current Visit: Yes (2) Preeclampsia SNOMED Code(s): 816642727 Code(s): O14.90 - UNSPECIFIED PRE-ECLAMPSIA, UNSPECIFIED TRIMESTER Status: Acute Current Visit: Yes Qualifiers: Trimester: third trimester Qualified Code(s): O14.93 - Unspecified pre- eclampsia, third trimester (3) Vaginal delivery SNOMED Code(s): 245513994 Code(s): O80 - ENCOUNTER FOR FULL-TERM UNCOMPLICATED DELIVERY Status: Acute Current Visit: Yes - Problem List Review Problem List Initiated/Reviewed/Updated: Yes - My Orders Last 24 Hours: My Active Orders 12/27/17 Breakfast Regular Diet [DIET] 12/28/17 02:53 Heat Therapy [OM.PC] PRN 12/28/17 06:56 Ready for Discharge [RC] PER UNIT ROUTINE - Assessment Assessment:: 22 y/o G2 now P1011 PPD#1 from at 38 0/7 wks after IOL for preeclampsia - Plan Plan:: * Routine cares * Encourage breast feeding * BP's normal, continue to monitor * Discharge home tomorrow
[2017-12-28] MEDS: Ibuprofen 600 MG Tab PO PRN ×2 (10:21→20:14)
[2017-12-29] MEDS: Ibuprofen 600 MG Tab PO PRN (04:07)
--- NOTE | 2017-12-29 07:11 | PCM.PNPP ---
- General Info Date of Service: 12/29/17 Functional Status: Reports: Pain Controlled, Tolerating Diet, Ambulating, Urinating - Review of Systems General: Reports: No Symptoms Pulmonary: Reports: No Symptoms Cardiovascular: Reports: No Symptoms Gastrointestinal: Reports: No Symptoms Genitourinary: Reports: Other (Some discomfort around suture site ) Musculoskeletal: Reports: No Symptoms - Patient Data Vital Signs - Most Recent: Last Vital Signs Temp 36.8 C 12/29/17 04:02 Pulse 93 12/29/17 04:02 Resp 18 12/29/17 04:02 BP 128/72 12/29/17 04:02 Pulse Ox 95 12/29/17 04:02 Weight - Most Recent: 102.058 kg Med Orders - Current: Current Medications Acetaminophen (Tylenol) 650 mg PO Q4H PRN PRN Reason: mild pain or fever Benzocaine/Menthol (Dermoplast Pain Relief [place]) 0 gm TOP ASDIRECTED PRN PRN Reason: Perineal Comfort Measure Last Admin: 12/27/17 03:51 Dose: 1 applic Docusate Sodium (Colace) 100 mg PO BID PRN PRN Reason: Constipation Emollient Ointment (Lansinoh Hpa) 0 gm TOP ASDIRECTED PRN PRN Reason: Sore Nipples Ibuprofen (Motrin) 600 mg PO Q6H PRN PRN Reason: Mild pain or fever Last Admin: 12/29/17 04:07 Dose: 600 mg Witch Riana (Tucks) 1 pad TOP ASDIRECTED PRN PRN Reason: Hemorrhoid pain Last Admin: 12/27/17 03:52 Dose: 1 tub Discontinued Medications Bupivacaine HCl (Sensorcaine-Mpf 0.25%) 10 ml .ROUTE .STK-MED ONE Stop: 12/26/17 22:23 Ephedrine Sulfate (Ephedrine Sulfate) 5 mg IVPUSH ASDIRECTED PRN PRN Reason: Hypotension Fentanyl (Sublimaze) 100 mcg EPIDUR Q3H PRN PRN Reason: Pain Last Admin: 12/26/17 19:00 Dose: 100 mcg Fentanyl/Bupivacaine HCl (Fentanyl/Bupivacaine/Ns 2 Mcg-0.125% 100 Ml) 100 ml EPIDUR ASDIRECTED BRYAN Last Admin: 12/26/17 19:00 Dose: 100 ml Lactated Ringer's (Ringers, Lactated) 1,000 mls @ 100 mls/hr IV ASDIRECTED BRYAN Last Admin: 12/26/17 23:55 Dose: 100 mls/hr Oxytocin/Lactated Ringer's (Pitocin In Lr 10 Units/1,000 Ml) 10 unit in 1,000 mls @ 12 mls/hr IV TITRATE BRYAN; 2 MUNITS/MIN PRN Reason: Protocol Oxytocin/Lactated Ringer's (Pitocin In Lr 10 Units/1,000 Ml) 10 unit in 1,000 mls @ 500 mls/hr IV .CONTINUOUS BRYAN Last Admin: 12/27/17 03:50 Dose: 500 mls/hr Misoprostol (Cytotec) 25 mcg VAG ONETIME ONE Stop: 12/26/17 08:10 Last Admin: 12/26/17 08:33 Dose: 25 mcg Ondansetron HCl (Zofran) 4 mg IVPUSH ONETIME PRN PRN Reason: Nausea/Vomiting Sodium Chloride (Saline Flush) 10 ml FLUSH ASDIRECTED PRN PRN Reason: Keep Vein Open - Interaction Infant Disposition, : in Room with Family Interaction: Holding Infant Feeding: Attempted ; Nursed Fair/Poor - Recovery Exam Fundal Tone: Firm Fundal Level: 1 Fingerbreadths Below Umbilicus Fundal Placement: Midline Lochia Amount: Scant Lochia Color: Rubra/Red Perineum Description: Other (see below) Other Perinuem Description: 1st degree laceration with repair. Episiotomy/Laceration: Approximated Bladder Status: Voiding Urinary Elimination: Voided - Exam General: Alert, Oriented, Cooperative GI/Abdominal Exam: Soft, Non-Tender Extremities: Normal Inspection Skin: Warm, Dry, Intact - Problem List & Annotations (1) 37 weeks gestation of SNOMED Code(s): 23434442 Code(s): Z3A.37 - 37 WEEKS GESTATION OF Status: Acute (2) Preeclampsia SNOMED Code(s): 643157592 Code(s): O14.90 - UNSPECIFIED PRE-ECLAMPSIA, UNSPECIFIED TRIMESTER Status: Acute Qualifiers: Trimester: third trimester Qualified Code(s): O14.93 - Unspecified pre- eclampsia, third trimester (3) Vaginal delivery SNOMED Code(s): 534432740 Code(s): O80 - ENCOUNTER FOR FULL-TERM UNCOMPLICATED DELIVERY Status: Acute - Problem List Review Problem List Initiated/Reviewed/Updated: Yes - My Orders Last 24 Hours: My Active Orders 12/28/17 06:56 Ready for Discharge [RC] PER UNIT ROUTINE - Assessment Assessment:: 22 y/o G2 now P1011 PPD#2 from at 38 0/7 wks after IOL for preeclampsia - Plan Plan:: * Routine cares * Encourage breast feeding * BP's normal. Will follow up in clinic for BP check in 1-2 weeks * Discharge home today
== END 2017-12-29 10:45 | disposition home or self-care (01) | DRG 775 ==
LOC: JD.OB 01:21 → OBSVTOIN 12-27 01:21
PROVIDERS: ADMIT Obstetrics & Gynecology; ATTEND Obstetrics & Gynecology
PROC: 10E0XZZ Delivery of Products of Conception, External Approach (ICD-10-PCS; principal; 2017-12-27)
PROC: 3E0P7VZ Introduction of Hormone into Female Reproductive, Via Natural or Artificial Opening (ICD-10-PCS; 2017-12-27)
PROC: 0HQ9XZZ Repair Perineum Skin, External Approach (ICD-10-PCS; 2017-12-27)
PROC: 00HU33Z Insertion of Infusion Device into Spinal Canal, Percutaneous Approach (ICD-10-PCS; 2017-12-27)
PROC: 3E0R3BZ Introduction of Anesthetic Agent into Spinal Canal, Percutaneous Approach (ICD-10-PCS; 2017-12-27)
DX: O14.94 Unspecified pre-eclampsia, complicating childbirth (principal); O42.02 Full-term premature rupture of membranes, onset of labor within 24 hours of rupture; O70.0 First degree perineal laceration during delivery; Z3A.37 37 weeks gestation of pregnancy; Z37.0 Single live birth; Z91.018 Allergy to other foods
CPT/HCPCS: 01967; 36415; 51702; 59300; 59409; 82565; 84450; 84460; 85025; 86850; 86900; 86901; A9270-GY; J2590; J3010; J7120

== ENCOUNTER 2019-07-22 12:56 | Emergency (ER) | payer SELFPAY ==
--- NOTE | 2019-07-22 13:15 | EDM.PDOC ---
ED HPI GENERAL MEDICAL PROBLEM - General Chief Complaint: Headache Stated Complaint: HEADACHE Time Seen by Provider: 07/22/19 13:07 Source of Information: Reports: Patient, RN Notes Reviewed History Limitations: Reports: No Limitations - History of Present Illness INITIAL COMMENTS - FREE TEXT/NARRATIVE: Patient is a 23-year-old female who presents to the ED for the evaluation of a headache. The patient attempted to go to the walk-in clinic but was referred here for management. Patient states that she has had an on-and-off headache behind her eyes that shoots through the back of her head for about 2 and half to 3 weeks now. She states she's been taking 600 mg ibuprofen 2 times daily for her headache and it hasn't really made the headache go away at all. The patient states that that the headache is always kind of a throbbing headache in nature, but sometimes increases to a stabbing pain. She notes her pain is a 6 out of 10. She denies any history of migraines. She states on the headache is at its worst, she does see some spots, and is light sensitive. She notes that she got a new pair of glasses a few weeks before this headache started. She denies any past medical history other than having a child, does not take any regular medications. She denies any fevers or chills, nausea/vomiting/ diarrhea. She has no primary care physician. Forehead Pain Score (Numeric/FACES): 6 - Related Data Allergies Allergy/AdvReac Type Severity Reaction Status Date / Time strawberry Allergy Airway Verified 07/22/19 13:11 Tightness Home Meds: Home Meds . [No Known Home Meds] 07/22/19 [History] Past Medical History - Past Health History Medical/Surgical History: Denies Medical/Surgical History [employer] History: Reports: , Spontaneous Endocrine/Metabolic History: Reports: Obesity/BMI 30+ - Past Surgical History HEENT Surgical History: Reports: Oral Surgery Social & Family History - Family History Cardiac: Reports: Hypertension, OR Other Cardiac Family History: mat grandfather OR. hypertension mother and father Respiratory: Reports: Asthma Other Respiratory Family Hisory: father Oncologic: Reports: Renal Other Oncologic Family History: mother - Tobacco Use Smoking Status *Q: Never Smoker - Caffeine Use Caffeine Use: Reports: None - Living Situation & Occupation Living situation: Reports: Single, with Significant Other (Boyfriend) Occupation: Employed ([employer]) ED ROS GENERAL - Review of Systems Review Of Systems: See Below Constitutional: Denies: Fever, Chills HEENT: Reports: No Symptoms Respiratory: Denies: Shortness of Breath Cardiovascular: Denies: Chest Pain Endocrine: Reports: No Symptoms GI/Abdominal: Denies: Abdominal Pain, Constipation, Diarrhea, Nausea, Vomiting : Reports: No Symptoms Musculoskeletal: Reports: No Symptoms Skin: Reports: No Symptoms Neurological: Reports: Headache Psychiatric: Reports: No Symptoms Hematologic/Lymphatic: Reports: No Symptoms Immunologic: Reports: No Symptoms - Physical Exam Exam: See Below Exam Limited By: No Limitations General Appearance: Alert, WD/WN, No Apparent Distress Eye Exam: Bilateral Eye: EOMI, Normal Inspection, PERRL Ears: Normal External Exam Nose: Normal Inspection Throat/Mouth: Normal Inspection, Normal Lips, Normal Teeth, Normal Gums, Normal Oropharynx, Normal Voice, No Airway Compromise Head Exam: Atraumatic, Normocephalic Neck: Normal Inspection, Supple, Non-Tender, Full Range of Motion Respiratory/Chest: No Respiratory Distress, Lungs Clear, Normal Breath Sounds, No Accessory Muscle Use, Chest Non-Tender Cardiovascular: Normal Peripheral Pulses, Regular Rate, Rhythm, No Murmur GI/Abdominal: Normal Bowel Sounds, Soft, Non-Tender, No Distention, No Mass Neuro Exam (Abbreviated): Alert, Oriented, Normal Cognition, No Motor/Sensory Deficits Extremities: Normal Inspection, Normal Capillary Refill Psychiatric: Normal Affect, Normal Mood Skin Exam: Warm, Dry, Intact, Normal Color, No Rash Course - Vital Signs Last Recorded V/S: Last Vital Signs Temp 97.9 F 07/22/19 13:06 Pulse 99 07/22/19 13:06 Resp 20 07/22/19 13:06 BP 136/94 H 07/22/19 13:06 Pulse Ox 100 07/22/19 13:06 - Orders/Labs/Meds Orders: Active Orders 24 hr Category Date Time Status Peripheral IV Care [RC] . DIRECTED Care 07/22/19 13:24 Active Peripheral IV Insertion Adult [OM.PC] Routine Oth 07/22/19 13:24 Ordered Labs: Laboratory Tests 07/22/19 07/22/19 Range/Units 13:48 13:48 WBC 7.80 (3.98-10.04) K/mm3 RBC 4.95 (3.98-5.22) M/mm3 Hgb 14.2 D (11.2-15.7) gm/dl Hct 41.1 (34.1-44.9) % MCV 83.0 (79.4-94.8) fl MCH 28.7 (25.6-32.2) pg MCHC 34.5 (32.2-35.5) g/dl RDW Std Deviation 38.1 (36.4-46.3) fL Plt Count 345 (182-369) K/mm3 MPV 9.3 L (9.4-12.3) fl Neut % (Auto) 56.5 (34.0-71.1) % Lymph % (Auto) 33.6 (19.3-51.7) % [place] % (Auto) 5.9 (4.7-12.5) % Eos % (Auto) 3.6 (0.7-5.8) Baso % (Auto) 0.3 (0.1-1.2) % Neut # (Auto) 4.41 (1.56-6.13) K/mm3 Lymph # (Auto) 2.62 (1.18-3.74) K/mm3 [place] # (Auto) 0.46 H (0.24-0.36) K/mm3 Eos # (Auto) 0.28 (0.04-0.36) K/mm3 Baso # (Auto) 0.02 (0.01-0.08) K/mm3 Sodium 139 (136-145) mEq/L Potassium 4.0 (3.5-5.1) mEq/L Chloride 104 (98-107) mEq/L Carbon Dioxide 26 (21-32) mEq/L Anion Gap 13.0 (5-15) BUN 14 (7-18) mg/dL Creatinine 0.7 (0.55-1.02) mg/dL Est Cr Clr Drug Dosing 103.40 mL/min Estimated GFR (MDRD) > 60 (>60) mL/min BUN/Creatinine Ratio 20.0 H (14-18) Glucose 90 (74-106) mg/dL Calcium 9.2 (8.5-10.1) mg/dL Total Bilirubin 0.3 (0.2-1.0) mg/dL AST 21 (15-37) U/L ALT 34 (14-59) U/L Alkaline Phosphatase 74 (46-116) U/L Total Protein 7.4 (6.4-8.2) g/dl Albumin 3.7 (3.4-5.0) g/dl Globulin 3.7 gm/dL Albumin/Globulin Ratio 1.0 (1-2) Meds: Medications Discontinued Medications Generic Name Dose Route Start Last Admin Trade Name Freq PRN Reason Stop Dose Admin Diphenhydramine HCl 25 mg 07/22/19 13:24 07/22/19 14:12 Benadryl IVPUSH 07/22/19 13:25 25 mg ONETIME ONE Administration Sodium Chloride 1,000 mls @ 125 mls/hr 07/22/19 13:30 07/22/19 13:30 Normal Saline IV 125 mls/hr ASDIRECTED BRYAN Administration Ketorolac Tromethamine 30 mg 07/22/19 13:24 07/22/19 14:10 Toradol IVPUSH 07/22/19 13:25 30 mg ONETIME ONE Administration Metoclopramide HCl 10 mg 07/22/19 13:24 07/22/19 14:09 Reglan IVPUSH 07/22/19 13:25 10 mg ONETIME ONE Administration Sodium Chloride 10 ml 07/22/19 13:24 07/22/19 21:03 Saline Flush FLUSH 10 ml ASDIRECTED PRN Administration Keep Vein Open - Re-Assessments/Exams Free Text/Narrative Re-Assessment/Exam: 07/22/19 13:35 Patient presents to the ED for evaluation of a headache. I'm unsure to the etiology with splint causing his for the past few weeks, however she did get a new glasses prescription shortly before the headache started. I did order CBC, CMP for lab evaluation, IV be placed with IV fluids, 10 mg Reglan, 25 mg Benadryl, 30 mg Toradol for initial management. 07/22/19 14:35 Patient's laboratory evaluation is back,no acute abnormalities. Patient was requesting to go home after demented been given, she did not receive the IV fluids. This is fine with me, I did direct her to follow up with primary care physician for further management of this headache. She understands. Departure - Departure Time of Disposition: 14:22 Disposition: Home, Self-Care 01 Condition: Fair Clinical Impression: Headache Qualifiers: Headache type: tension-type Headache chronicity pattern: acute headache Intractability: not intractable Qualified Code(s): G44.209 - Tension-type headache, unspecified, not intractable - Discharge Information *PRESCRIPTION DRUG MONITORING PROGRAM REVIEWED*: No *COPY OF PRESCRIPTION DRUG MONITORING REPORT IN PATIENT BELINDA: No Instructions: General Headache Without Cause, [id number] Referrals: PCP,None [Primary Care Provider] - Forms: ED Department Discharge Additional Instructions: You were evaluated in the ED for your headache. Your laboratory evaluation demonstrated no acute abnormalities at today's visit. You were given a combination of IV medications for management. This did seem to provide you pretty good relief of your symptoms. Recommend that you go home and rest in a quiet darkened room. Try also to keep well hydrated. You should try to establish care with a primary care physician, any family practice provider would be able to provide you with the services. Our [facility] telephone number is [phone], the [facility]'s number is . Please return to the ED if your symptoms should change or worsen. - My Orders Last 24 Hours: My Active Orders 07/22/19 13:24 Peripheral IV Care [RC] . DIRECTED Peripheral IV Insertion Adult [OM.PC] Routine - Assessment/Plan Last 24 Hours: My Active Orders 07/22/19 13:24 Peripheral IV Care [RC] . DIRECTED Peripheral IV Insertion Adult [OM.PC] Routine
[2019-07-22] MEDS ORDERED: Metoclopramide 10 MG/2 ML SDV IVPUSH ONE (13:24)
[2019-07-22] MEDS ORDERED: Ketorolac 30 MG/ML SDV IVPUSH ONE (13:24)
[2019-07-22] MEDS ORDERED: Sodium Chloride 0.9% 10 ML Syringe FLUSH PRN (13:24)
[2019-07-22] MEDS ORDERED: diphenhydrAMINE 50 MG/ML SDV IVPUSH ONE (13:24)
[2019-07-22] MEDS ORDERED: Sodium Chloride 0.9% 1,000 ML IV SCH (13:30)
== END 2019-07-22 14:50 | disposition home or self-care (01) ==
LOC: JD.ED 12:56
DX: G44.209 Tension-type headache, unspecified, not intractable (principal); E66.9 Obesity, unspecified; Z68.38 Body mass index [BMI] 38.0-38.9, adult; Z91.018 Allergy to other foods
CPT/HCPCS: 36415; 80053; 85025; 96361; 96374; 96375; 99284; J1200; J1885; J2765; J7040